=== PATIENT | male | born 1950 | race Caucasian/White ===

== ENCOUNTER → 2024-03-29 | Outpatient (CLI) | payer MEDICARE ==
[~2024-03-29] MED LIST: AEC81 PO; ATOR40TA71 PO; FURO20TA4 PO; GARL1TAB2 PO; LISI10TA24 PO; METO-408 PO; OMEG-96 PO; SAW PALMETTO C1 EACH PO; milk thistle PO
[2024-03-29 12:37] LABS: ALBUMIN 3.4 g/dL (3.5-5.0); BILIRUBIN,TOTAL 0.7 mg/dL (0.2-1.0); CREATININE 1.4 mg/dL (0.5-1.3); MAGNESIUM 1.8 mg/dL (1.80-2.40); POTASSIUM 3.9 mmol/L (3.5-5.1); TOTAL PROTEIN, SERUM 7.7 g/dL (6.0-8.3)
== END | disposition home or self-care (01) ==
LOC: LAB 08:18
PROVIDERS: ATTEND Internal Medicine Cardiovascular Disease
DX: R06.02 Shortness of breath (principal); Z79.899 Other long term (current) drug therapy
CPT/HCPCS: 36415; 80053; 82306; 83735; 83880

== ENCOUNTER → 2024-04-12 | Outpatient (CLI) | payer MEDICARE ==
--- NOTE | 2024-04-13 19:40 | HMCSR ---
APPROVED REPORT EXAM: Two-dimensional and M-mode echocardiogram with Doppler and color Doppler. INDICATION ICD: R06.02 Shortness of breath Hx Restrictive Pericarditis RISK FACTORS Hypertension Hyperlipidemia Diabetes 2D Dimensions RVDd3.5 cmLVEF(%)61.1 (>50%)LVED Vol(simp.)133.0 mL IVSd0.9 (0.7-1.1cm)FS(%)33 %LVES Vol(simp.)57.0 mL LVDd4.6 (3.8-5.6cm)Ao Root(2D)3.8 (2.0-3.7cm)LVEF(%, simp.)57 % PWd0.9 (0.7-1.1cm)LVOT diam2.2 (1.8-2.4cm)LA ESV INDEX (BP)23.36 mL/m2 LVDs3.1 (2.5-4.0cm)IVC diam1.3 cm Deformation Strain Apical 4-18.3 % Apical 2-19.6 % Apical 3-15.6 % Global Strain-17.8 % Aortic Valve AoV Vmax1.2 m/Abigail Peak GR5.9 mmHgLVOT Vmax1.2 m/s AoV VTI0.3 mAo Mean GR3.0 mmHgLVOT VTI0.24 m MICHAEL (VMAX)3.6 cm2AVA (VTI) 3.6 cm2 Mitral Valve MV E Vmax79.2 cm/sDECEL Zhon029 ms MV A Vmax78.2 cm/sP 1/2 T69 ms E/A ratio1.0MVA (PHT)3.2 cm2 MR Max PG51 mmHg TDI E/E' Medial8.1E/E' Lateral8.0 Pulmonary Valve PV Vmax1.2 m/sPV VTI0.26 mPV Mean GR3 mmHg PV Peak GR5.9 mmHg Tricuspid Valve RAP (EST) 3 mmHg Left Ventricle The left ventricle structure and function is normal. There is normal left ventricular wall thickness. LVEF is 55-60%. GLS rate is -17.8%. Indeterminate diastolic dysfunction. Right Ventricle The right ventricle is normal size. The right ventricular systolic function is normal. Atria The left atrium size is normal. The right atrium size is normal. Aortic Valve Aortic valve is trileaflet. Aortic valve leaflets are sclerotic but open well. Trace aortic regurgita tion. There is no aortic valvular stenosis. Mitral Valve Mitral valve leaflets are mildly sclerotic but open well. Mitral regurgitation is trace. There is no mitral valve stenosis. Tricuspid Valve The tricuspid valve leaflets appear normal. There is trace tricuspid regurgitation. Pulmonic Valve The pulmonic valve leaflets are thin and pliable; valve motion is normal. There is trace pulmonic tammie vular regurgitation. Great Vessels Aortic root is mildly dilated. The IVC is normal in size and collapses >50% with inspiration. Pericardium No pericardial effusion seen. Conclusion LVEF is 55-60%. GLS rate is -17.8%.
== END | disposition home or self-care (01) ==
LOC: SHCH 12:32
PROVIDERS: ATTEND Internal Medicine Cardiovascular Disease
DX: I08.0 Rheumatic disorders of both mitral and aortic valves (principal); I11.9 Hypertensive heart disease without heart failure; E11.9 Type 2 diabetes mellitus without complications; E78.5 Hyperlipidemia, unspecified; R06.02 Shortness of breath
CPT/HCPCS: 93306; 93356